=== PATIENT | male | born 1960 | race Caucasian/White ===

== ENCOUNTER 2017-11-24 00:13 | Emergency (ER) | payer BC, OTHER ==
[2017-11-24] MEDS ORDERED: Sodium Chloride 0.9% 1,000 ML IV ONE (00:24)
[2017-11-24] MEDS ORDERED: Ondansetron 4 MG/2 ML SDV IV ONE (00:28)
--- NOTE | 2017-11-24 00:32 | EDM.PDOC ---
ED HPI GENERAL MEDICAL PROBLEM - General Chief Complaint: Headache Stated Complaint: HEADACHE [id number] Time Seen by Provider: 11/24/17 00:28 Source of Information: Reports: Patient History Limitations: Reports: No Limitations - History of Present Illness INITIAL COMMENTS - FREE TEXT/NARRATIVE: started headache this am was dull and ok then few hours ago got worse all over head. 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 denies prior h/o of such. been nauseous. 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 [No Known Home Meds] 11/24/17 [History] ED ROS GENERAL - Review of Systems Review Of Systems: ROS reveals no pertinent complaints other than HPI. - Physical Exam Exam: See Below Exam Limited By: No Limitations General Appearance: Alert, WD/WN, Mild Distress, Other (discomfort) Eye Exam: Bilateral Eye: PERRL (pupils ER @ 4mm) Ears: Hearing Grossly Normal Throat/Mouth: Normal Voice, No Airway Compromise Head Exam: Atraumatic Neck: Non-Tender, Full Range of Motion Respiratory/Chest: No Respiratory Distress Cardiovascular: Regular Rate, Rhythm GI/Abdominal: Soft, Non-Tender Neuro Exam (Abbreviated): Alert, Oriented, Normal Cognition, Normal Gait, No Motor/Sensory Deficits Psychiatric: Normal Affect, Normal Mood Skin Exam: Warm, Dry, Normal Color Course - Vital Signs Last Recorded V/S: Last Vital Signs Temp 36.2 C 11/24/17 01:26 Pulse 65 11/24/17 01:26 Resp 16 11/24/17 01:26 BP 112/60 11/24/17 01:26 Pulse Ox 98 11/24/17 01:26 - Orders/Labs/Meds Orders: Active Orders 24 hr Category Date Time Status Head wo Cont [CT] Urgent Exams 11/24/17 00:24 Taken LYME DISEASE AB TOTAL IG EIA [REF] Stat Lab 11/24/17 00:29 Received [facility] IGM [REF] Urgent Lab 11/24/17 00:23 Ordered Labs: Laboratory Tests 11/24/17 11/24/17 Range/Units 00:29 00:29 WBC 9.7 (5.0-10.0) 10^3/uL RBC 5.24 (4.6-6.2) 10^6/uL Hgb 14.5 (14.0-18.0) g/dL Hct 43.8 (40.0-54.0) % MCV 83.6 (80-100) fL MCH 27.7 (27.0-34.0) pg MCHC 33.1 (33.0-35.0) g/dL Plt Count 243 (150-450) 10^3/uL Neut % (Auto) 48.1 (42.2-75.2) % Lymph % (Auto) 36.8 (20.5-50.1) % Rains % (Auto) 11.7 H (2-8) % Eos % (Auto) 3.0 (1.0-3.0) % Baso % (Auto) 0.4 (0.0-1.0) % Sodium 138 (135-145) mmol/L Potassium 4.1 (3.6-5.0) mmol/L Chloride 102 (101-111) mmol/L Carbon Dioxide 29.0 (21.0-31.0) mmol/L Anion Gap 11.1 BUN 17 (7-18) mg/dL Creatinine 1.0 (0.6-1.3) mg/dL Est Cr Clr Drug Dosing 87.85 mL/min Estimated GFR (MDRD) > 60 BUN/Creatinine Ratio 17.00 Glucose 135 H (74-105) mg/dL Calcium 8.9 (8.4-10.2) mg/dl Total Bilirubin 0.9 (0.2-1.0) mg/dL AST 26 (10-42) IU/L ALT 21 (10-60) IU/L Alkaline Phosphatase 79 (42-121) IU/L Total Protein 7.3 (6.7-8.2) g/dl Albumin 4.3 (3.2-5.5) g/dl Globulin 3.0 Albumin/Globulin Ratio 1.43 Meds: Medications Discontinued Medications Generic Name Dose Route Start Last Admin Trade Name Freq PRN Reason Stop Dose Admin Doxycycline Hyclate 300 mg 11/24/17 01:27 11/24/17 01:33 Vibramycin PO 11/24/17 01:28 300 mg ONETIME ONE Administration Hydromorphone HCl 1 mg 11/24/17 01:14 11/24/17 01:21 Dilaudid IVPUSH 11/24/17 01:15 1 mg ONETIME ONE Administration Sodium Chloride 1,000 mls @ 999 mls/hr 11/24/17 00:24 11/24/17 00:30 Normal Saline IV 11/24/17 01:24 999 mls/hr .BOLUS ONE Administration Ketorolac Tromethamine 15 mg 11/24/17 00:55 11/24/17 00:58 Toradol IVPUSH 11/24/17 00:56 15 mg ONETIME ONE Administration Ondansetron HCl 4 mg 11/24/17 00:28 11/24/17 00:32 Zofran IV 11/24/17 00:29 4 mg ONETIME ONE Administration - Re-Assessments/Exams Free Text/Narrative Re-Assessment/Exam: 11/24/17 01:44 results discussed with pt & spouse. s/p IV Rx = much better Departure - Departure Time of Disposition: 01:50 Disposition: Home, Self-Care 01 Condition: Good Clinical Impression: Migraine - Discharge Information Instructions: Migraine Headache, [id number] Forms: ED Department Discharge Additional Instructions: 1) rest as much as possible 2) avoid vigorous activities next 48 hours 3) recheck if there is any change or concern rx given; vicodin 5/325mg bid prn x 6 - My Orders Last 24 Hours: My Active Orders 11/24/17 00:23 [facility] IGM [REF] Urgent 11/24/17 00:24 Head wo Cont [CT] Urgent 11/24/17 00:29 LYME DISEASE AB TOTAL IG EIA [REF] Stat - Assessment/Plan Last 24 Hours: My Active Orders 11/24/17 00:23 [facility] IGM [REF] Urgent 11/24/17 00:24 Head wo Cont [CT] Urgent 11/24/17 00:29 LYME DISEASE AB TOTAL IG EIA [REF] Stat
[2017-11-24 00:55] LABS: CHLORIDE,CL 102 mmol/L (101-111); SODIUM,NA 138 mmol/L (135-145)
[2017-11-24] MEDS ORDERED: Ketorolac 30 MG/ML SDV IVPUSH ONE (00:55)
[2017-11-24] MEDS ORDERED: HYDROmorphone 0.5 MG/0.5 ML Syringe IVPUSH ONE (01:14)
[2017-11-24] MEDS ORDERED: Doxycycline 100 MG Cap PO ONE (01:27)
== END 2017-11-24 01:54 | disposition home or self-care (01) ==
LOC: DL.ED 00:13
DX: G43.909 Migraine, unspecified, not intractable, without status migrainosus (principal); Z88.1 Allergy status to other antibiotic agents
CPT/HCPCS: 36415; 70450; 80053; 85025; 86618; 96361; 96374; 96375; 99284; A9270; J1170; J1885; J2405; J7030

== ENCOUNTER → 2018-11-29 | Outpatient (CLI) | payer OTHER | LOC: DL.CT 10:15 | PROVIDERS: ATTEND Family Medicine | DX: N23 Unspecified renal colic (principal); K44.9 Diaphragmatic hernia without obstruction or gangrene; K57.30 Diverticulosis of large intestine without perforation or abscess without bleeding; K40.20 Bilateral inguinal hernia, without obstruction or gangrene, not specified as recurrent; K42.9 Umbilical hernia without obstruction or gangrene | CPT/HCPCS: 74176 ==

== ENCOUNTER 2022-03-31 04:14 | Emergency (ER) | payer OTHER ==
[2022-04-25 14:31] LABS: ANION GAP 10.8 mEq/L (7-13); CHLORIDE,CL 103 mmol/L (98-107); SODIUM,NA 141 mmol/L (136-145)
[2022-04-25 14:32] LABS: ESTIMATED GFR 77 mL/min (>=60)
== END 2022-03-31 07:30 | disposition home or self-care (01) ==
LOC: DL.ED 04:14
DX: H53.2 Diplopia (principal); B02.9 Zoster without complications
CPT/HCPCS: 36415; 70450; 70490; 80053; 84484; 85025; 85610; 85651; 86140; 93005; 93010; 99284

== ENCOUNTER 2023-12-30 08:43 | Emergency (ER) | payer OTHER ==
[2023-12-30] MEDS: Ketorolac 30 MG/ML SDV IM ONE (09:23)
[2023-12-30] MEDS: Acetaminophen/HYDROcodone 325-5 MG Tab PO ONE (09:23)
== END 2023-12-30 11:05 | disposition home or self-care (01) ==
LOC: DL.ED 08:43
DX: M51.37 Other intervertebral disc degeneration, lumbosacral region (principal); M46.1 Sacroiliitis, not elsewhere classified; M47.817 Spondylosis without myelopathy or radiculopathy, lumbosacral region; Z88.1 Allergy status to other antibiotic agents; Z79.899 Other long term (current) drug therapy
CPT/HCPCS: 72100; 72200; 96372; 99283; A9270; J1885; 99284